=== PATIENT | male | born 1955 | race Caucasian/White ===

== ENCOUNTER → 2016-11-17 | Outpatient (CLI) | payer MEDICAID ==
--- NOTE | 2016-11-17 10:09 | GOP ---
[f rep st] OPERATIVE REPORT DATE OF OPERATION: 11/17/2016 SURGEON: Shane Edgar MD PREOPERATIVE DIAGNOSIS: Elevated prostate-specific antigen. POSTOPERATIVE DIAGNOSIS: Elevated prostate-specific antigen. PROCEDURE PERFORMED: Ultrasound-guided biopsies of the prostate. FINDINGS: INDICATIONS: The patient is a 61-year-old male with elevated PSA. Options were discussed. He elec hi to undergo diagnostic prostate biopsies. DESCRIPTION OF PROCEDURE: With the patient in the left lateral decubitus position, and after inform ed consent, the transrectal ultrasound probe was inserted into the rectum, and images of the prostat e were obtained. 1% lidocaine was used to infiltrate the periprosthetic tissue. Sextant biopsies o f the right and left base, mid and apex, were then carried out under ultrasound guidance. The patie nt tolerated the procedure well, and there were no complications. /[id number]/MODL
== END ==
LOC: BMCIMAGING 08:19
PROVIDERS: ATTEND Urology
PROC: 0VB07ZX Excision of Prostate, Via Natural or Artificial Opening, Diagnostic (ICD-10-PCS; principal; 2016-11-17)
DX: C61 Malignant neoplasm of prostate (principal); R97.20 Elevated prostate specific antigen [PSA]